=== PATIENT | male | born 1935 ===

== ENCOUNTER → 2024-04-22 | Outpatient (REF) | payer MEDICARE, SELFPAY ==
[2024-04-22 08:02] LABS: Hematocrit 43.9 % (40-54); Hemoglobin 14.5 g/dL (13.0-16.5); Mean Corpuscular Hgb 28.8 pg (27.0-32.0); Mean Corpuscular Volume 87.3 fL (80-94); Mean Platelet Vol. 10.3 fl (6.2-12.0); Platelet Count 224 K/mm3 (150-450); RBC Distribution Width CV 13.4 % (11.6-14.6); RBC Distribution Width SD 42.5 fl (35.1-43.9); Red Blood Count 5.03 M/mm3 (4.6-6.2); White Blood Count 8.6 K/mm3 (4.4-11.0)
[2024-04-22 09:22] LABS: ALB/GLOB Ratio 1.6 RATIO (0.9-2.4); AST(SGOT) 16 U/L (<=37); Alanine Aminotransfer ALT/SGPT 8 U/L (<=46); Albumin, Serum 3.5 g/dL (3.4-4.8); Alkaline Phosphatase 66 U/L (40-129); Anion Gap 11 (5-15); BUN 17 mg/dL (4-19); Calcium,Total 8.6 mg/dL (7.6-11.0); Carbon Dioxide 23.6 mmol/L (21.0-32.0); Chloride 107 mmol/L (98-108); Cholesterol 147 mg/dL (<=200); Creatinine, Serum 1.37 mg/dL (0.70-1.20); EST Glomerular Filtration Rate 49 (>60); Globulin 2.3 g/dL (2.2-4.2); Glucose 125 mg/dL (70-99); High Density Lipoprotein 40 mg/dL; Low Density Lipoprotein Calc. 83 mg/dL; Potassium 3.4 mmol/L (3.3-5.1); Protein, Total 5.8 g/dL (5.9-8.4); Sodium Level 142 mmol/L (133-145); Total Bilirubin 0.32 mg/dL (0.00-1.30); Triglycerides 125 mg/dL; Very Low Density Lipoprotein 25 mg/dL (5-40); cholesterol:hdl ratio screen 3.72
[2024-04-22 09:44] LABS: Vitamin D,25 Hydroxy 22.3 ng/mL (30-100)
== END ==
LOC: OLS.ACW300 06:10
PROVIDERS: Referring Provider Family Medicine; Visit Provider Family Medicine
DX: G31.1 Senile degeneration of brain, not elsewhere classified (principal); F03.918 Unspecified dementia, unspecified severity, with other behavioral disturbance; R45.6 Violent behavior; F05 Delirium due to known physiological condition
CPT/HCPCS: 36415; 80053; 80061; 82306; 84443; 85027